=== PATIENT | female | born 1945 | race Asian ===

== ENCOUNTER 2017-10-06 10:06 | Emergency (ER) | payer OTHER ==
[~2017-10-06] VITALS: Ht 152.4 cm; Wt 41.3 kg
[2017-10-06 10:09] VITALS: BP 92/48; Ht 152.4 cm; Wt 41.3 kg
== END 2017-10-06 12:38 | disposition home or self-care (01) ==
LOC: ED 10:06
DX: S92.355A Nondisplaced fracture of fifth metatarsal bone, left foot, initial encounter for closed fracture (principal); W22.8XXA Striking against or struck by other objects, initial encounter; Y93.89 Activity, other specified; Y92.89 Other specified places as the place of occurrence of the external cause; Y99.8 Other external cause status

== ENCOUNTER 2018-04-06 21:22 | Inpatient (IN) | payer OTHER ==
[~2018-04-06] VITALS: Ht 152.4 cm; Wt 50.8 kg
[2018-04-06 21:27] VITALS: Ht 152.4 cm; Wt 50.8 kg
[2018-04-06 22:15] LABS: BASOPHIL % 0.2 % (0-2); PLATELET COUNT 238 x10^3mcL (130-400); RED CELL DISTRIBUTION WIDTH 13.3 % (11.5-14.5)
[2018-04-06 22:20] LABS: CARBON DIOXIDE 14.6 mmol/L (21-32); CHLORIDE SERUM 92 mmol/L (98-107); CREATININE SERUM 0.8 mg/dL (0.6-1.0); GFR1 > 60 mL/min; GLUCOSE SERUM 78 mg/dL (74-106); POTASSIUM SERUM 3.8 mmol/L (3.5-5.1); SODIUM SERUM 135 mmol/L (136-145)
[2018-04-06 22:24] LABS: ALBUMIN 4.2 g/dL (3.4-5.0); ALKALINE PHOSPHATASE 76 U/L (46-116); ALT/SGPT 33 U/L (14-59); AST/SGOT 44 U/L (15-37); BILIRUBIN TOTAL 0.7 mg/dL (0.20-1.00); TOTAL PROTEIN, SERUM 7.5 g/dL (6.4-8.2)
[2018-04-06 22:41] LABS: UA SPECIFIC GRAVITY >=1.030 (1.005-1.035); microscopic required? YES; urine erythrocyte 2+ (NEGATIVE)
[2018-04-07 03:27] VITALS: BP 144/73
[2018-04-07 03:35] LABS: MAGNESIUM 1.7 mg/dL (1.8-2.4)
[2018-04-07 03:36] LABS: CHOLESTEROL/HDL RATIO 2.3
[2018-04-07 03:43] LABS: FREE T4 0.7 ng/dL (0.76-1.46); FREE THYROXINE INDEX 1.9 ug/dL (1.4-4.5); T4(THYROXINE) 5.4 ug/dL (4.7-13.3)
[2018-04-07 03:44] LABS: T3 TOTAL 0.8 ng/mL
[2018-04-07 04:42] VITALS: BP 135/46
[2018-04-07 08:43] LABS: CALCIUM 7.8 mg/dL (8.5-10.1); CARBON DIOXIDE 28.8 mmol/L (21-32); CHLORIDE SERUM 100 mmol/L (98-107); CREATININE SERUM 0.6 mg/dL (0.6-1.0); GFR1 > 60 mL/min; GLUCOSE SERUM 120 mg/dL (74-106); POTASSIUM SERUM 3.7 mmol/L (3.5-5.1); SODIUM SERUM 138 mmol/L (136-145)
[2018-04-07 08:46] LABS: PLATELET COUNT 182 x10^3mcL (130-400); RED CELL DISTRIBUTION WIDTH 13.3 % (11.5-14.5)
[2018-04-07 08:55] LABS: BASOPHIL % 0 % (0-2)
[2018-04-07 09:30] VITALS: BP 132/75
[2018-04-07 17:47] VITALS: BP 125/68
[2018-04-07 21:07] VITALS: BP 122/58
[2018-04-08 05:58] VITALS: BP 108/59
[2018-04-08 06:09] LABS: BASOPHIL % 0.3 % (0-2); PLATELET COUNT 155 x10^3mcL (130-400); RED CELL DISTRIBUTION WIDTH 13.3 % (11.5-14.5)
[2018-04-08 06:40] LABS: CALCIUM 8.2 mg/dL (8.5-10.1); CARBON DIOXIDE 27.5 mmol/L (21-32); CHLORIDE SERUM 103 mmol/L (98-107); CREATININE SERUM 0.5 mg/dL (0.6-1.0); GFR1 > 60 mL/min; GLUCOSE SERUM 82 mg/dL (74-106); MAGNESIUM 1.9 mg/dL (1.8-2.4); PHOSPHOROUS 2.4 mg/dL (2.5-4.9); POTASSIUM SERUM 4.1 mmol/L (3.5-5.1); SODIUM SERUM 141 mmol/L (136-145)
[2018-04-08 09:14] VITALS: BP 120/60
[2018-04-08] MEDS ORDERED: NOR5 PO (17:24)
[2018-04-08] MEDS ORDERED: FENOFIBRATE48 M1 PO (17:24)
[2018-04-08 17:42] VITALS: BP 154/68
[2018-04-08 19:31] VITALS: BP 154/68
== END 2018-04-08 20:10 | disposition home or self-care (01) | DRG 205 ==
LOC: ED 21:22 → DU 04-07 02:14
PROVIDERS: Emergency Medicine; General Practice
DX: M94.0 Chondrocostal junction syndrome [Tietze] (principal); J96.01 Acute respiratory failure with hypoxia; N39.0 Urinary tract infection, site not specified; E87.1 Hypo-osmolality and hyponatremia; E87.2 Acidosis; Z68.1 Body mass index [BMI] 19.9 or less, adult; R65.10 Systemic inflammatory response syndrome (SIRS) of non-infectious origin without acute organ dysfunction; E78.5 Hyperlipidemia, unspecified; F17.210 Nicotine dependence, cigarettes, uncomplicated
CPT/HCPCS: 36600; 83880; 84439; A9500; C9113; J0696; J2405; J2785; J7030; J7040; Q0092; Q9967